=== PATIENT | female | born 1980 ===

== ENCOUNTER 2024-09-09 02:34 | Emergency (ER) | payer OTHER ==
[~2024-09-09] VITALS: Ht 152.4 cm; Wt 74.8 kg
[2024-09-09] MEDS ORDERED: Lidocaine 4% 1 Patch TOP ONE (04:35)
[2024-09-09] MEDS ORDERED: ACET500 PO (04:37)
[2024-09-09] MEDS ORDERED: Ibuprofen600 MG PO (04:37)
[2024-09-09] MEDS ORDERED: LIDO700A20 TOP (04:37)
== END 2024-09-09 05:24 | disposition home or self-care (01) ==
LOC: ER 02:34
DX: M62.830 Muscle spasm of back (principal); Z88.2 Allergy status to sulfonamides; Z79.899 Other long term (current) drug therapy; E11.9 Type 2 diabetes mellitus without complications; F43.10 Post-traumatic stress disorder, unspecified; Z59.89 Other problems related to housing and economic circumstances
CPT/HCPCS: 99283; A9270